=== PATIENT | female | born 1995 | race African-American/Black ===

== ENCOUNTER 2022-04-01 22:24 | Emergency (ER) | payer OTHER ==
[~2022-04-01] VITALS: Ht 167 cm; Wt 44.0 kg
[2022-04-01 22:28] VITALS: TEMP 97.4
[2022-04-01 23:09] LABS: BASO % 0.2 % (0.0-2.0); EOS # 0.1 K/mm3 (0.0-0.7); EOS % 1.8 % (0.0-4.0); GRAN # 1.9 K/mm3 (1.4-6.5); GRAN % 30.5 % (42.2-75.2); HEMOGLOBIN 10.4 g/dl (12.5-16.0); LYMPH # 3.6 K/mm3 (1.2-3.4); LYMPH % 58.9 % (20.0-51.0); MEAN CELL VOLUME 85 fl (80.0-100.0); MEAN CORPUSCULAR HEMOGLOBIN 28 pg (27-31); MEAN CORPUSCULAR HGB CONC 33 g/dl (33.0-37.0); MEAN PLATELET VOLUME 9.9 fl (7.4-10.4); MONO # 0.5 K/mm3 (0.1-0.6); MONO % 8.4 % (1.7-9.3); PLATELET COUNT 185 K/mm3 (130-400); RED BLOOD COUNT 3.68 M/mm3 (4.10-5.30); REDCELL DISTRIBUTION WIDTH-CV 13.8 % (11.5-14.5)
[2022-04-01 23:11] LABS: HEMATOCRIT 31.2 % (37.0-47.0)
[2022-04-01 23:26] LABS: ALBUMIN 3.5 gm/dL (3.5-5.0); BILIRUBIN,TOTAL 0.2 mg/dL (0.2-1.2); CALCIUM 9.1 mg/dL (8.4-10.2); CREATININE, serum 0.66 mg/dL (0.57-1.11); POTASSIUM 3.5 mmol/L (3.5-4.5); TOTAL PROTEIN 6.8 gm/dL (6.2-8.1)
[2022-04-02 00:54] LABS: COLLECTION METHOD CLEAN CATCH
[2022-04-02 01:00] LABS: PH 6 (5-8); SQUAMOUS EPITHELIAL 0-2 /hpf (0-10); URINE APPEARANCE Clear (CLEAR/HAZY); URINE BACTERIA None Seen /hpf (NONE SEEN); URINE BILIRUBIN Negative (NEGATIVE); URINE BLOOD Negative (NEGATIVE); URINE COLOR Colorless (YELLOW); URINE GLUCOSE Negative (NEGATIVE); URINE KETONE Negative (NEGATIVE); URINE LEUKOCYTE ESTERASE Negative (NEGATIVE); URINE NITRATE Negative (NEGATIVE); URINE PROTEIN(semi-quant) Negative (NEGATIVE); URINE RBC 0-2 /hpf (0-2); URINE UROBILINOGEN Negative (NEGATIVE)
[2022-04-02] MEDS ORDERED: ZOFRAN ODT4 MG PO (01:14)
[2022-04-02] MEDS ORDERED: MIRALAX238G PO (01:14)
[2022-04-02] MEDS ORDERED: PROTONIX 40MG T40 MG PO (01:14)
[2022-04-02 01:25] VITALS: BP 110/75; PULSE 78
== END 2022-04-02 01:25 | disposition home or self-care (01) ==
LOC: COL.ER 22:24
PROVIDERS: Personal Emergency Response Attendant
DX: R10.13 Epigastric pain (principal)
CPT/HCPCS: C9113; J2405; J7030; Q9967